=== PATIENT | female | born 1985 | race Caucasian/White ===

== ENCOUNTER 2016-11-09 13:20 | Emergency (ER) | payer OTHER, MEDICAID ==
[2016-11-09 13:26] VITALS: TEMP 98.3
[2016-11-09 13:40] VITALS: BMI 20.8
--- NOTE | 2016-11-09 13:54 | EDPRACDOC ---
- General Information Chief Complaint: Shoulder Pain Stated Complaint: ? PINCHED NERVE PAIN RT SHOULDER & DOWN ARM Time Seen by Provider: 11/09/16 13:48 Information Source: Patient Mode of Arrival: Car Home Medications: Home Medications Cyclobenzaprine HCl [Flexeril] 10 mg PO TID PRN #20 tablet 11/09/16 Dextroamphetamine/Amphetamine [Adderall 30 mg Tablet] 30 mg PO DAILY 11/09/16 Escitalopram Oxalate [Lexapro] 10 mg PO DAILY 11/09/16 Hydrocodone Bit/Acetaminophen [Hydrocodon-Acetaminophen 5-325] 1 tab PO Q6 PRN # 20 tab 11/09/16 Paroxetine HCl [Paxil] 20 mg PO DAILY 11/09/16 Prednisone [Deltasone, Orasone] 40 mg PO DAILY 5 Days 11/09/16 Allergies/Adverse Reactions: Allergies Allergy/AdvReac Type Severity Reaction Status Date / Time Penicillins Allergy Severe Anaphylaxis Verified 11/09/16 13:34 * amoxicillin Allergy Anaphylaxis Verified 11/09/16 13:34 * latex Allergy Rash-Locali Verified 11/09/16 13:34 zed - History of Present Illness Onset: 5 days HPI: PT STATES SHARP, STABBING PAIN IN RIGHT SHOULDER X 5 DAYS, STATES PAIN RADIATES DOWN HER ARM, STATES PAIN WORSE WITH LIFTING ARM AND MOVING SHOULDER, USING OTC MEDS WITHOUT RELIEF, NO KNOWN INJURY, 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 Description: Reports: At Rest Location: Reports: Right, Lateral Circumstances: Reports: Spontaneous Relevant History: Reports: None Dominant Hand: Left Pain Severity: Severe Able to Move Shoulder?: Yes Associated Signs & Symptoms: Reports: Neck pain, Arm pain. Denies: Abrasion, Swelling, Numbness, Chest pain, Elbow pain ED Past Medical History - History Reviewed Yes Nurses notes reviewed and agree except as marked - Patient Medical History Psychological History: Reports: Anxiety. Denies: Depression Systemic History: Reports: Anemia Surgical History: Denies: Hysterectomy - Family Medical History Reports: Hypertension (mother). Denies: Diabetes, Cancer, Stroke, Cardiac Disorders - Social Medical History Smoking Status: Heavy tobacco smoker (5 or more cigarettes/day or daily pipe/ cigar) Social History: Denies: Cocaine Use, Heroin Use, Marijuana Use, MDMA (Ecstasy) Use ETOH: None Substance Abuse: None EDM Review of Systems - Review of Systems Neurological: negative: Dizziness, Numbness, Weakness Musculoskeletal: Shoulder Integumentary: No Symptoms Reported - Physical Exam Constitutional: Alert (Awake), No apparent distress Oriented to: Time, Person, Place Last recorded Vital Signs: Last Vital Signs Temp 98.3 F 11/09/16 13:20 Pulse 84 11/09/16 13:20 Resp 18 11/09/16 13:20 BP 150/91 11/09/16 13:20 Pulse Ox 98 11/09/16 13:20 Oxygen Pulse Oxygen Saturation 98 O2 Device Room Air Oxygen Flow Rate Fraction of Inspired Oxygen ( FIO2) - HEENT Head: Normal ( normocephalic) Neck: Normal (FROM, trachea at midline) - Integumentary Skin: Normal, Warm, Dry Lymphatics: Normal (no adenopathy) - Neurologic Memory Impaired: Normal Motor Function: Normal (Normal tone, Pulses 2+ No cyanosis or edema, FROM) Cranial Nerve: Normal (CN II-X11 intact sensation, strength 5/5) Cerebellar: Normal Mood Description: Normal Perception: Normal ED Shoulder Problem Exam - Musculoskeletal Clavicle: negative: Swelling, Ecchymosis, Deformity, Tender, Crepitance Shoulder: Limited ROM, Tender (DIFFUSELY BUT ESPECIALLY OVER BICIPITAL GROOVE). negative: Swelling, Ecchymosis, Deformity, Dislocation Arm: Normal. negative: Swelling, Deformity Distal Function/Circulation: Normal, Capillary Refill. negative: Motor Deficit , Pulse Deficit, Sensory Deficit - Differential Diagnosis Bicipital tendonitis, Impingement syndrome, Rotator cuff injury Decision Time to Discharge: 13:54 - Departure Disposition: Home Condition: Stable Final Diagnosis: Bicipital tendinitis of right shoulder Instructions: Tendinitis (ED) Education/Counseling Given To: Patient Education/Counseling Given Regarding: Diagnosis, Treatment, Prognosis, Follow Up Referrals: Demetrius Terrell MD [Staff Physician] - One Week Prescriptions: New Cyclobenzaprine HCl [Flexeril] 10 mg PO TID PRN #20 tablet PRN Reason: Muscle Spasms Hydrocodone Bit/Acetaminophen [Hydrocodon-Acetaminophen 5-325] 1 tab PO Q6 PRN #20 tab PRN Reason: Pain Prednisone [Deltasone, Orasone] 40 mg PO DAILY 5 Days No Action Paroxetine HCl [Paxil] 20 mg PO DAILY Escitalopram Oxalate [Lexapro] 10 mg PO DAILY Dextroamphetamine/Amphetamine [Adderall 30 mg Tablet] 30 mg PO DAILY Additional Instructions: WEAR SLING NEEDED FOR COMFORT, YOU MAY REMOVE IT AT NIGHT AND TO BATHE, APPLY WARM COMPRESSES TO YOUR SHOULDER 20 MINS AT A TIME 4 - 5 TIMES DAILY NEEDED FOR PAIN, RETURN TO THE ED FOR ANY WORSENING SYMPTOMS OR CONCERNS.
[2016-11-09 14:01] VITALS: BP 148/85; PULSE 70
== END 2016-11-09 14:06 | disposition home or self-care (01) ==
LOC: EDMC 13:20
DX: M75.21 Bicipital tendinitis, right shoulder (principal)
CPT/HCPCS: 99283